=== PATIENT | male | born 1955 | race Caucasian/White ===

== ENCOUNTER → 2016-09-18 | Outpatient (CLI) | payer OTHER ==
[~2016-09-18] MED LIST: ACULAR 3ML 3 ML5 ML; ATENOLOL50 MG; LIPITOR40 MG; LISINOPRIL20 MG PO; OCUFLOX 0.3% 5 M5 ML; PRED FORTE 1 ML1 ML; TRICOR134 MG; TYLENOL PM 5001 CAP; XANAX0.25 MG; [UNRECOGNIZED DRUG - OTHER]
[2016-09-18 13:54] LABS: CHOLESTEROL 258 mg/dL (<200); HDL CHOLESTEROL 34 mg/dl (40-60)
[2016-09-18 14:00] LABS: TRIGLYCERIDES 1157 mg/dl (<150)
== END | disposition home or self-care (01) ==
LOC: LAB 13:01
PROVIDERS: Internal Medicine
DX: E78.5 Hyperlipidemia, unspecified (principal)

== ENCOUNTER → 2017-05-10 | Outpatient (CLI) | payer OTHER ==
[2017-05-10 15:48] LABS: ALBUMIN 4.2 gm/dl (3.1-4.5); ALKALINE PHOSPHATASE 64 U/L (45-117); BILIRUBIN, DIRECT 0.1 mg/dL (0.0-0.2); BUN 28 mg/dl (7-24); CHLORIDE 104 mmol/L (98-107); CHOLESTEROL 112 mg/dL (<200); CREATININE 1.35 mg/dL (0.70-1.30); HDL CHOLESTEROL 22 mg/dl (40-60); LDL CHOLESTEROL 25 mg/dL (9-159); SGOT/AST 24 IU/L (3-35); SGPT/ALT 26 U/L (12-78); SODIUM 141 mmol/L (136-145); TOTAL PROTEIN 7.9 gm/dL (6.4-8.2); TRIGLYCERIDES 325 mg/dl (<150); VLDL CHOLESTEROL 65 mg/dL (6-40)
== END | disposition home or self-care (01) ==
LOC: LAB 14:22
PROVIDERS: Internal Medicine
DX: I10 Essential (primary) hypertension (principal); R73.02 Impaired glucose tolerance (oral); E78.5 Hyperlipidemia, unspecified; E55.9 Vitamin D deficiency, unspecified

== ENCOUNTER → 2018-04-06 | Day surgery (SDC) | payer OTHER ==
[~2018-04-06] VITALS: Ht 172.7 cm; Wt 90.7 kg
[~2018-04-06] MED LIST changes: +BETIMOL5 M1 OD; +FISH OIL 1,0001 EAC3 PO; +XANAX2 M1 PO; +ZETIA10 MG PO
--- NOTE | ~2018-04-06 | O ---
[place], [place] OPERATIVE NOTE NAME: ANGELA CLARK [facility] #: [id number] UNIT #: [id number] ROOM: DOCTOR: GABRIELE RASMUSSEN MD BIRTHDATE: [birth year] DOS: 04/06/2018 PREOPERATIVE DIAGNOSIS: Cataract, left eye. POSTOPERATIVE DIAGNOSIS: Cataract, left eye. OPERATION: Extracapsular cataract extraction by phacoemulsification with posterior chamber intraocular lens implantation, left eye. ANESTHESIA: Monitored standby. INTRAOCULAR LENS: Griffin AU00T0 and 23.5 diopters, left eye. OPERATIVE FINDINGS AND PROCEDURE: 2% Xylocaine topical anesthetic gel was applied to the eye in the preop area. The patient was taken to the operating room and prepped and draped in the standard fashion for sterile intraocular surgery. A time out procedure was performed verifying correct patient, correct site and corrects lens with Sujata Rasmussen M.D. The operating microscope was swung into position and the lid speculum was inserted. Using a Otilia paracentesis blade, a paracentesis was made through clear cornea. Viscoelastic was used to fill the anterior chamber. Using a metal keratome a 2.4 mm self-sealing clear corneal cataract incision was made temporally at the limbus. Using a pre-bent 25 gauge cystotome needle, a standard continuous curvilinear capsulorrhexis was performed. The anterior capsule was removed with forceps. The lens nucleus was hydrodissected and phacoemulsified in the posterior chamber. Cortical material was removed with the irrigation aspiration hand piece and the posterior capsule was then polished with a curet under irrigation. The posterior chamber and capsular bag were filled with viscoelastic. A posterior chamber intraocular lens manufactured by: Griffin, model AU00T0 and 23.5 diopters in strength were then inserted into the posterior chamber and within the capsular bag using the lens cartridge and injector system. Viscoelastic was removed using the irrigation aspiration handpiece. The anterior chamber was filled with balanced salt solution through the paracentesis. Both the paracentesis site and cataract incisions were hydrated with BSS and verified to be water-tight and self-sealing. Cefuroxime 1 mg/0.1 mL was injected into the anterior chamber through the paracentesis site. The incision checked to be water-tight using a Weck-Francie sponge. The integrity of the cataract wound and ocular tension were checked. Lid speculum and drapes were removed. The patient was transferred from the operating room to the recovery room in satisfactory condition. [place], [place] OPERATIVE NOTE NAME: ANGELA CLARK UNIT #: [id number] ROOM: DOCTOR: GABRIELE RASMUSSEN MD BIRTHDATE: [birth year] GABRIELE RASMUSSEN MD CM:OPRECORD:OPERATIVE NOTE [id number] GABRIELE RASMUSSEN MD 04/06/18 1639 interface
[2018-04-06 14:41] VITALS: BP 126/80
[2018-04-06 14:55] VITALS: BP 134/87
[2018-04-06 15:11] VITALS: BP 131/68
== END | disposition home or self-care (01) ==
LOC: SDC 03-31 11:00
DX: H25.812 Combined forms of age-related cataract, left eye (principal); I10 Essential (primary) hypertension; F41.9 Anxiety disorder, unspecified; F32.9 Major depressive disorder, single episode, unspecified; F10.10 Alcohol abuse, uncomplicated; F17.210 Nicotine dependence, cigarettes, uncomplicated; Z79.899 Other long term (current) drug therapy; Z98.41 Cataract extraction status, right eye; Z96.1 Presence of intraocular lens

== ENCOUNTER 2021-06-12 21:09 | Observation (INO) | payer OTHER ==
[~2021-06-12] VITALS: Ht 172.7 cm; Wt 72.6 kg
[2021-06-12 21:09] VITALS: BP 134/98
[~2021-06-12 21:09] MED LIST changes: -BETIMOL5 M1 OD; +COSOPT 2%-0.5%10 ML OD; +VITAMIN D325 MCG PO; -[UNRECOGNIZED DRUG - OTHER]
[2021-06-12] MEDS ORDERED: LATANOPROST2.5 ML OD (21:29)
[2021-06-12 21:32] LABS: BASO # 0.1 10*3/uL (0.0-0.1); BASO % 0.7 % (0.0-1.0); EOS # 0.1 10*3/uL (0.0-0.4); EOS % 0.7 % (1.0-4.0); HEMATOCRIT 44.9 % (42.0-52.0); LYMPH % 24.7 % (27.0-41.0); MEAN CELL VOLUME 89.4 fl (80.0-94.0); MEAN CORPUSCULAR HGB 31.1 pg (27.0-31.0); MEAN CORPUSCULAR HGB CONC 34.7 g/dl (33.0-37.0); MEAN PLATELET VOLUME 12.2 fl (9.6-12.3); MONO % 12.7 % (3.0-9.0); PLATELET COUNT AUTOMATED 240 10*3/uL (130-400); RED BLOOD COUNT 5.02 10*6/uL (4.50-5.90); RED CELL DISTRI WIDTH 14.4 % (0-14.5); WHITE BLOOD COUNT 8.2 10*3/uL (4.8-10.8)
[2021-06-12 21:43] LABS: ACT PARTIAL THROMBO TIME 32.3 SECONDS (20.0-32.1)
[2021-06-12 21:45] LABS: ALBUMIN 4.1 gm/dl (3.1-4.5); ALKALINE PHOSPHATASE 97 U/L (45-117); BUN 18 mg/dl (7-24); CHLORIDE 105 mmol/L (98-107); CREATININE 0.95 mg/dL (0.70-1.30); POTASSIUM 3.4 mmol/L (3.5-5.1); SGOT/AST 28 IU/L (3-35); SGPT/ALT 40 U/L (12-78); SODIUM 138 mmol/L (136-145); TOTAL PROTEIN 7.1 gm/dL (6.4-8.2)
[2021-06-12 22:27] VITALS: BP 128/83
[2021-06-12 23:53] VITALS: BP 120/71
[2021-06-13 00:58] VITALS: BP 142/70
[2021-06-13 03:16] VITALS: BP 124/77
[2021-06-13 05:31] LABS: BUN 17 mg/dl (7-24); CHLORIDE 107 mmol/L (98-107); CREATININE 0.76 mg/dL (0.70-1.30); POTASSIUM 3.8 mmol/L (3.5-5.1); SODIUM 140 mmol/L (136-145)
[2021-06-13 05:35] LABS: CHOLESTEROL 145 mg/dL (<200); FREE T4 0.88 ng/dl (0.76-1.46); LDL CHOLESTEROL 81 mg/dL (9-159); TRIGLYCERIDES 182 mg/dl (<150)
[2021-06-13 05:59] VITALS: BP 136/75
[2021-06-13 06:16] LABS: BASO # 0.1 10*3/uL (0.0-0.1); BASO % 0.6 % (0.0-1.0); EOS # 0.1 10*3/uL (0.0-0.4); EOS % 0.8 % (1.0-4.0); HEMATOCRIT 41.3 % (42.0-52.0); LYMPH # 2.1 10*3/uL (1.3-4.4); LYMPH % 24.7 % (27.0-41.0); MEAN CELL VOLUME 89.6 fl (80.0-94.0); MEAN CORPUSCULAR HGB 30.4 pg (27.0-31.0); MEAN CORPUSCULAR HGB CONC 33.9 g/dl (33.0-37.0); MEAN PLATELET VOLUME 11.9 fl (9.6-12.3); MONO % 11.5 % (3.0-9.0); NEUT # 5.4 10*3/uL (2.3-7.9); NEUT % 62.1 % (47.0-73.0); PLATELET COUNT AUTOMATED 201 10*3/uL (130-400); RED BLOOD COUNT 4.61 10*6/uL (4.50-5.90); RED CELL DISTRI WIDTH 14.2 % (0-14.5); WHITE BLOOD COUNT 8.6 10*3/uL (4.8-10.8)
[2021-06-13 08:06] VITALS: BP 138/83
[2021-06-13 12:24] VITALS: BP 141/88
[2021-06-13] MEDS ORDERED: LISINOPRIL10 M1 PO (15:04)
[2021-06-13] MEDS ORDERED: ATORVASTATIN CA40 M1 PO (15:04)
[2021-06-13] MEDS ORDERED: IMDUR SA30 MG PO (15:04)
[2021-06-13] MEDS ORDERED: ASPIRIN ADULT L81 M2 PO (15:04)
[2021-06-13] MEDS ORDERED: LOPRESSOR25 MG PO (15:04)
[2021-06-13] MEDS ORDERED: NITROSTAT0.4 MG PO (15:04)
== END 2021-06-13 16:00 | disposition home or self-care (01) ==
LOC: ED 21:09 → 4E 06-13 00:24 → EDHOLD 06-13 00:24 → 4E 06-13 07:59
PROVIDERS: Emergency Medicine; Student in an Organized Health Care Education/Training Program; ADMIT Family Medicine; ATTEND Family Medicine
DX: R07.89 Other chest pain (principal); R42 Dizziness and giddiness; F41.9 Anxiety disorder, unspecified; R71.8 Other abnormality of red blood cells; Z20.822 Contact with and (suspected) exposure to COVID-19; I10 Essential (primary) hypertension; E78.5 Hyperlipidemia, unspecified; E55.9 Vitamin D deficiency, unspecified; F17.200 Nicotine dependence, unspecified, uncomplicated; Z79.899 Other long term (current) drug therapy

== ENCOUNTER → 2021-08-14 | Outpatient (CLI) | payer OTHER ==
[~2021-08-14] MED LIST changes: +ASPIRIN ADULT L81 M2 PO; +ATORVASTATIN CA40 M1 PO; +IMDUR SA30 MG PO; +LATANOPROST2.5 ML OD; +LISINOPRIL10 M1 PO; +LOPRESSOR25 MG PO; +NITROSTAT0.4 MG PO
== END | disposition home or self-care (01) ==
LOC: US 08:28
PROVIDERS: ATTEND Physician Assistant
DX: K80.80 Other cholelithiasis without obstruction (principal); I10 Essential (primary) hypertension; F17.210 Nicotine dependence, cigarettes, uncomplicated; F41.0 Panic disorder [episodic paroxysmal anxiety]; R63.4 Abnormal weight loss; N28.9 Disorder of kidney and ureter, unspecified

== ENCOUNTER 2021-09-11 16:37 | Emergency (ER) | payer OTHER | END 2021-09-11 18:00 | disposition left against medical advice (07) | LOC: ED 16:37 | DX: R10.9 Unspecified abdominal pain (principal); Z53.21 Procedure and treatment not carried out due to patient leaving prior to being seen by health care provider ==

== ENCOUNTER 2021-10-21 16:54 | Inpatient (IN) | payer OTHER ==
[~2021-10-21] VITALS: Ht 172.7 cm; Wt 66.8 kg
[2021-10-21 16:59] VITALS: BP 145/95; BP 165/95
[2021-10-21 17:27] LABS: BASO % 0.5 % (0.0-1.0); EOS % 0.1 % (1.0-4.0); HEMATOCRIT 46.6 % (42.0-52.0); LYMPH # 1.1 10*3/uL (1.3-4.4); LYMPH % 12.9 % (27.0-41.0); MEAN CELL VOLUME 88.8 fl (80.0-94.0); MEAN CORPUSCULAR HGB 30.9 pg (27.0-31.0); MEAN CORPUSCULAR HGB CONC 34.8 g/dl (33.0-37.0); MEAN PLATELET VOLUME 10.9 fl (9.6-12.3); MONO # 0.7 10*3/uL (0.1-1.0); MONO % 8.5 % (3.0-9.0); NEUT # 6.3 10*3/uL (2.3-7.9); NEUT % 77.8 % (47.0-73.0); PLATELET COUNT AUTOMATED 165 10*3/uL (130-400); RED BLOOD COUNT 5.25 10*6/uL (4.50-5.90); RED CELL DISTRI WIDTH 12.4 % (0-14.5); WHITE BLOOD COUNT 8.1 10*3/uL (4.8-10.8)
[2021-10-21 17:37] LABS: ACT PARTIAL THROMBO TIME 28.8 SECONDS (20.0-32.1); INTERNATIONAL NORM RATIO 1.1 (2.0-3.5)
[2021-10-21 17:45] LABS: ALKALINE PHOSPHATASE 101 U/L (45-117); BUN 9 mg/dl (7-24); CHLORIDE 103 mmol/L (98-107); CPK 370 U/L (39-308); CREATININE 0.72 mg/dL (0.70-1.30); POTASSIUM 3.1 mmol/L (3.5-5.1); SGOT/AST 22 IU/L (3-35); SGPT/ALT 17 U/L (12-78); SODIUM 139 mmol/L (136-145); TOTAL PROTEIN 6.6 gm/dL (6.4-8.2)
[2021-10-21 17:56] LABS: ETHYL ALCOHOL < 3.0 mg/dl (<3)
[2021-10-21 20:35] LABS: BILIRUBIN Negative (Negative); BLOOD Negative (Negative); CLARITY Clear (Clear); COLOR Yellow (Yellow); GLUCOSE Negative (Negative); KETONE 1+ (Negative); LEUKO ESTERASE Negative (Negative); NITRITE Negative (Negative); UROBILINOGEN 0.2 E.U./dl (0.0-1.0)
[2021-10-21 20:43] LABS: EPITHELIAL CELLS 0-2; URINE AMPHETAMINES < 1000 (1000ng/ml); URINE BARBITURATES < 200 (200ng/ml); URINE BENZODIAZEPINES > 200 (200ng/ml); URINE CANNABINOIDS (THC) < 50 (50ng/ml); URINE COCAINE < 300 (300ng/ml); URINE METHADONE < 300 (300ng/ml); URINE OPIATES < 300 (300ng/ml); WBC 0-2 wbc/hpf (0-5)
[2021-10-21 20:44] LABS: BACTERIA TRACE; HYALINE CAST 0-2; URINE PHENCYCLIDINE < 25 (25ng/ml)
[2021-10-21 21:45] VITALS: BP 150/86
[2021-10-21 22:06] VITALS: BP 101/60
[2021-10-22] VITALS: BP 138/74
[2021-10-22 06:01] LABS: BASO % 0.3 % (0.0-1.0); EOS % 0.2 % (1.0-4.0); HEMATOCRIT 42.6 % (42.0-52.0); LYMPH # 1.9 10*3/uL (1.3-4.4); LYMPH % 18.9 % (27.0-41.0); MEAN CELL VOLUME 90.4 fl (80.0-94.0); MEAN CORPUSCULAR HGB 31.2 pg (27.0-31.0); MEAN CORPUSCULAR HGB CONC 34.5 g/dl (33.0-37.0); MEAN PLATELET VOLUME 11.2 fl (9.6-12.3); MONO % 9.8 % (3.0-9.0); NEUT # 7.1 10*3/uL (2.3-7.9); NEUT % 70.4 % (47.0-73.0); PLATELET COUNT AUTOMATED 154 10*3/uL (130-400); RED BLOOD COUNT 4.71 10*6/uL (4.50-5.90); RED CELL DISTRI WIDTH 12.5 % (0-14.5); WHITE BLOOD COUNT 10.1 10*3/uL (4.8-10.8)
[2021-10-22 06:14] LABS: BUN 6 mg/dl (7-24); CHLORIDE 108 mmol/L (98-107); CHOLESTEROL 110 mg/dL (<200); CREATININE 0.55 mg/dL (0.70-1.30); LDL CHOLESTEROL 58 mg/dL (9-159); POTASSIUM 3.4 mmol/L (3.5-5.1); SGOT/AST 19 IU/L (3-35); SGPT/ALT 14 U/L (12-78); SODIUM 141 mmol/L (136-145); TOTAL PROTEIN 5.6 gm/dL (6.4-8.2); TRIGLYCERIDES 80 mg/dl (<150)
[2021-10-22 06:20] LABS: ALKALINE PHOSPHATASE 87 U/L (45-117); FREE T4 1.16 ng/dl (0.76-1.46); THYROID STIM HORMONE (HS) 0.775 uIU/ml (0.358-4.75)
[2021-10-22 06:22] LABS: CPK 250 U/L (39-308)
[2021-10-22 07:38] LABS: VITAMIN D, 25-HYDROXY 52.7 ng/mL (30-100)
[2021-10-22 08:00] VITALS: BP 150/79
[2021-10-22 12:00] VITALS: BP 107/75
[2021-10-22 16:00] VITALS: BP 107/53
[2021-10-22 20:00] VITALS: BP 121/84
[2021-10-23] VITALS: BP 119/88
[2021-10-23 06:13] LABS: BASO % 0.5 % (0.0-1.0); EOS % 0.5 % (1.0-4.0); LYMPH # 2.5 10*3/uL (1.3-4.4); LYMPH % 30.1 % (27.0-41.0); MEAN CELL VOLUME 90.3 fl (80.0-94.0); MEAN CORPUSCULAR HGB 30.8 pg (27.0-31.0); MEAN PLATELET VOLUME 11.6 fl (9.6-12.3); MONO # 0.8 10*3/uL (0.1-1.0); NEUT % 59.7 % (47.0-73.0); PLATELET COUNT AUTOMATED 137 10*3/uL (130-400); RED BLOOD COUNT 4.65 10*6/uL (4.50-5.90); RED CELL DISTRI WIDTH 12.8 % (0-14.5); WHITE BLOOD COUNT 8.3 10*3/uL (4.8-10.8)
[2021-10-23 06:14] LABS: BUN 11 mg/dl (7-24); CHLORIDE 109 mmol/L (98-107); CREATININE 0.65 mg/dL (0.70-1.30); POTASSIUM 3.8 mmol/L (3.5-5.1); SODIUM 143 mmol/L (136-145)
[2021-10-23 08:00] VITALS: BP 125/50; BP 127/64
[2021-10-23 12:00] VITALS: BP 130/89
[2021-10-23 16:00] VITALS: BP 145/81
[2021-10-23 20:00] VITALS: BP 144/68
[2021-10-24] VITALS: BP 131/79
[2021-10-24 06:09] LABS: BASO # 0.1 10*3/uL (0.0-0.1); BASO % 0.6 % (0.0-1.0); EOS # 0.1 10*3/uL (0.0-0.4); EOS % 0.9 % (1.0-4.0); HEMATOCRIT 39.4 % (42.0-52.0); LYMPH # 2.1 10*3/uL (1.3-4.4); LYMPH % 26.4 % (27.0-41.0); MEAN CELL VOLUME 91.2 fl (80.0-94.0); MEAN PLATELET VOLUME 11.7 fl (9.6-12.3); MONO # 0.8 10*3/uL (0.1-1.0); MONO % 10.3 % (3.0-9.0); NEUT # 4.9 10*3/uL (2.3-7.9); NEUT % 61.5 % (47.0-73.0); PLATELET COUNT AUTOMATED 125 10*3/uL (130-400); RED BLOOD COUNT 4.32 10*6/uL (4.50-5.90); RED CELL DISTRI WIDTH 12.8 % (0-14.5)
[2021-10-24 06:12] LABS: BUN 11 mg/dl (7-24); CHLORIDE 111 mmol/L (98-107); CREATININE 0.64 mg/dL (0.70-1.30); POTASSIUM 3.7 mmol/L (3.5-5.1); SODIUM 145 mmol/L (136-145)
[2021-10-24 08:00] VITALS: BP 146/82
[2021-10-24 12:00] VITALS: BP 144/83
[2021-10-24] MEDS ORDERED: XANAX2 M1 PO (12:08)
[2021-10-24] MEDS ORDERED: VITAMIN B-1100 M1 PO (12:10)
[2021-10-24] MEDS ORDERED: NATURE'S BLEND F1 MG PO (12:10)
== END 2021-10-24 13:30 | DRG 425 ==
LOC: ED 16:54 → 5E 20:01 → EDHOLD 20:01 → 5E 20:52
PROVIDERS: Emergency Medicine; Internal Medicine; Student in an Organized Health Care Education/Training Program; ADMIT Family Medicine; ATTEND Family Medicine
DX: E87.6 Hypokalemia (principal); F41.0 Panic disorder [episodic paroxysmal anxiety]; I10 Essential (primary) hypertension; F32.9 Major depressive disorder, single episode, unspecified; E78.5 Hyperlipidemia, unspecified; F41.9 Anxiety disorder, unspecified; R73.9 Hyperglycemia, unspecified; E80.6 Other disorders of bilirubin metabolism; E53.8 Deficiency of other specified B group vitamins; Z20.822 Contact with and (suspected) exposure to COVID-19; Z66 Do not resuscitate; I49.3 Ventricular premature depolarization; Z98.49 Cataract extraction status, unspecified eye; Z87.891 Personal history of nicotine dependence; Z51.5 Encounter for palliative care; I63.89 Other cerebral infarction; I69.30 Unspecified sequelae of cerebral infarction

== ENCOUNTER 2021-11-01 14:08 | Inpatient (IN) | payer OTHER ==
[~2021-11-01] VITALS: Ht 172.7 cm; Wt 56.9 kg
[~2021-11-01 14:08] MED LIST changes: +NATURE'S BLEND F1 MG PO; +VITAMIN B-1100 M1 PO
[2021-11-01 14:12] VITALS: BP 113/71
[2021-11-01 15:16] LABS: BASO % 0.5 % (0.0-1.0); EOS % 0.1 % (1.0-4.0); HEMATOCRIT 40.6 % (42.0-52.0); LYMPH # 1.4 10*3/uL (1.3-4.4); LYMPH % 16.9 % (27.0-41.0); MEAN CELL VOLUME 90.2 fl (80.0-94.0); MEAN CORPUSCULAR HGB 30.7 pg (27.0-31.0); MEAN PLATELET VOLUME 10.7 fl (9.6-12.3); MONO # 0.9 10*3/uL (0.1-1.0); MONO % 10.7 % (3.0-9.0); NEUT # 5.9 10*3/uL (2.3-7.9); NEUT % 71.4 % (47.0-73.0); PLATELET COUNT AUTOMATED 197 10*3/uL (130-400); RED CELL DISTRI WIDTH 13.3 % (0-14.5); WHITE BLOOD COUNT 8.3 10*3/uL (4.8-10.8)
[2021-11-01 15:32] LABS: ALKALINE PHOSPHATASE 89 U/L (45-117); BUN 31 mg/dl (7-24); CHLORIDE 108 mmol/L (98-107); CREATININE 1.09 mg/dL (0.70-1.30); POTASSIUM 3.4 mmol/L (3.5-5.1); SGOT/AST 14 IU/L (3-35); SGPT/ALT 26 U/L (12-78); SODIUM 143 mmol/L (136-145); TOTAL PROTEIN 5.9 gm/dL (6.4-8.2)
[2021-11-01 16:00] VITALS: BP 146/84
[2021-11-01 16:36] LABS: BILIRUBIN Negative (Negative); BLOOD Negative (Negative); CLARITY Clear (Clear); COLOR Yellow (Yellow); GLUCOSE Negative (Negative); KETONE Trace (Negative); LEUKO ESTERASE Negative (Negative); NITRITE Negative (Negative); SPECIFIC GRAVITY 1.025 (1.001-1.030)
[2021-11-01 16:39] LABS: URINE AMPHETAMINES < 1000 (1000ng/ml); URINE BARBITURATES < 200 (200ng/ml); URINE BENZODIAZEPINES > 200 (200ng/ml); URINE CANNABINOIDS (THC) < 50 (50ng/ml); URINE COCAINE < 300 (300ng/ml); URINE METHADONE < 300 (300ng/ml); URINE OPIATES < 300 (300ng/ml); URINE PHENCYCLIDINE < 25 (25ng/ml)
[2021-11-01 16:43] LABS: BACTERIA 2+; HYALINE CAST 0-2; MUCOUS 2+
[2021-11-01 16:44] LABS: EPITHELIAL CELLS 0-2; WBC 0-2 wbc/hpf (0-5)
[2021-11-01 20:00] VITALS: BP 136/79
[2021-11-01 20:10] VITALS: BP 160/80
[2021-11-01] MEDS ORDERED: XANAX0.5 MG PO (20:37)
[2021-11-01] MEDS ORDERED: COSOPT 2%-0.5%10 ML OPH (20:44)
[2021-11-01] MEDS ORDERED: XALATAN 2.5 ML2.5 ML OP (20:46)
[2021-11-02] VITALS: BP 176/86
[2021-11-02 04:00] VITALS: BP 146/84
[2021-11-02 05:19] LABS: ALKALINE PHOSPHATASE 83 U/L (45-117); CHLORIDE 110 mmol/L (98-107); CREATININE 0.56 mg/dL (0.70-1.30); POTASSIUM 3.7 mmol/L (3.5-5.1); SGOT/AST 19 IU/L (3-35); SGPT/ALT 23 U/L (12-78); SODIUM 141 mmol/L (136-145); TOTAL PROTEIN 5.8 gm/dL (6.4-8.2)
[2021-11-02 05:22] LABS: BUN 19 mg/dl (7-24)
[2021-11-02 06:15] LABS: BASO % 0.5 % (0.0-1.0); EOS % 0.3 % (1.0-4.0); HEMATOCRIT 40.8 % (42.0-52.0); LYMPH # 1.9 10*3/uL (1.3-4.4); LYMPH % 24.5 % (27.0-41.0); MEAN CELL VOLUME 88.9 fl (80.0-94.0); MEAN CORPUSCULAR HGB 30.5 pg (27.0-31.0); MEAN CORPUSCULAR HGB CONC 34.3 g/dl (33.0-37.0); MEAN PLATELET VOLUME 11.4 fl (9.6-12.3); MONO # 0.9 10*3/uL (0.1-1.0); MONO % 11.9 % (3.0-9.0); NEUT % 62.7 % (47.0-73.0); PLATELET COUNT AUTOMATED 188 10*3/uL (130-400); RED BLOOD COUNT 4.59 10*6/uL (4.50-5.90); RED CELL DISTRI WIDTH 13.3 % (0-14.5); WHITE BLOOD COUNT 7.9 10*3/uL (4.8-10.8)
[2021-11-02 06:30] LABS: ACT PARTIAL THROMBO TIME 34.4 SECONDS (20.0-32.1)
[2021-11-02 08:00] VITALS: BP 152/78
[2021-11-02 12:00] VITALS: BP 148/92
[2021-11-02 16:00] VITALS: BP 144/79
[2021-11-02 20:00] VITALS: BP 141/81
[2021-11-03] VITALS: BP 152/82
[2021-11-03 05:53] LABS: ALKALINE PHOSPHATASE 79 U/L (45-117); BUN 17 mg/dl (7-24); CHLORIDE 113 mmol/L (98-107); CREATININE 0.52 mg/dL (0.70-1.30); POTASSIUM 3.5 mmol/L (3.5-5.1); SGOT/AST 15 IU/L (3-35); SGPT/ALT 19 U/L (12-78); SODIUM 143 mmol/L (136-145); TOTAL PROTEIN 5.4 gm/dL (6.4-8.2)
[2021-11-03 07:08] LABS: BASO # 0.1 10*3/uL (0.0-0.1); BASO % 0.7 % (0.0-1.0); EOS # 0.1 10*3/uL (0.0-0.4); HEMATOCRIT 42.2 % (42.0-52.0); LYMPH # 2.7 10*3/uL (1.3-4.4); LYMPH % 36.8 % (27.0-41.0); MEAN CORPUSCULAR HGB 30.8 pg (27.0-31.0); MEAN CORPUSCULAR HGB CONC 33.4 g/dl (33.0-37.0); MEAN PLATELET VOLUME 12.2 fl (9.6-12.3); MONO # 0.7 10*3/uL (0.1-1.0); NEUT # 3.7 10*3/uL (2.3-7.9); NEUT % 51.4 % (47.0-73.0); PLATELET COUNT AUTOMATED 166 10*3/uL (130-400); RED BLOOD COUNT 4.58 10*6/uL (4.50-5.90); RED CELL DISTRI WIDTH 13.5 % (0-14.5); WHITE BLOOD COUNT 7.2 10*3/uL (4.8-10.8)
[2021-11-03 07:41] LABS: MEAN CELL VOLUME 92.1 fl (80.0-94.0)
[2021-11-03 08:00] VITALS: BP 154/90
[2021-11-03 12:00] VITALS: BP 134/76
[2021-11-03 12:15] VITALS: BP 140/59
[2021-11-03 16:00] VITALS: BP 139/71
[2021-11-03 20:00] VITALS: BP 110/73; BP 140/73
[2021-11-04] VITALS: BP 137/69
[2021-11-04 08:00] VITALS: BP 152/88
[2021-11-04 12:00] VITALS: BP 140/78
[2021-11-04 16:00] VITALS: BP 115/69
[2021-11-04 20:00] VITALS: BP 117/64
[2021-11-05] VITALS: BP 132/76
[2021-11-05 05:31] LABS: BUN 18 mg/dl (7-24); CHLORIDE 110 mmol/L (98-107); CREATININE 0.67 mg/dL (0.70-1.30); POTASSIUM 3.9 mmol/L (3.5-5.1); SODIUM 141 mmol/L (136-145)
[2021-11-05 06:26] LABS: BASO # 0.1 10*3/uL (0.0-0.1); BASO % 0.7 % (0.0-1.0); EOS # 0.1 10*3/uL (0.0-0.4); EOS % 1.5 % (1.0-4.0); HEMATOCRIT 40.4 % (42.0-52.0); LYMPH # 2.3 10*3/uL (1.3-4.4); LYMPH % 32.8 % (27.0-41.0); MEAN CELL VOLUME 91.8 fl (80.0-94.0); MEAN CORPUSCULAR HGB 30.7 pg (27.0-31.0); MEAN CORPUSCULAR HGB CONC 33.4 g/dl (33.0-37.0); MEAN PLATELET VOLUME 11.8 fl (9.6-12.3); MONO # 0.5 10*3/uL (0.1-1.0); MONO % 7.9 % (3.0-9.0); NEUT # 3.9 10*3/uL (2.3-7.9); NEUT % 56.7 % (47.0-73.0); PLATELET COUNT AUTOMATED 163 10*3/uL (130-400); RED CELL DISTRI WIDTH 13.6 % (0-14.5); WHITE BLOOD COUNT 6.9 10*3/uL (4.8-10.8)
[2021-11-05 08:00] VITALS: BP 151/87
[2021-11-05] MEDS ORDERED: LATU20TA PO (10:51)
[2021-11-05] MEDS ORDERED: XANAX0.5 MG PO (10:52)
== END 2021-11-05 12:54 | DRG 776 ==
LOC: ED 14:08 → EDHOLD 18:35 → 4E 18:35
PROVIDERS: Family Medicine; Internal Medicine; Student in an Organized Health Care Education/Training Program; ADMIT Internal Medicine; ATTEND Internal Medicine
DX: F13.239 Sedative, hypnotic or anxiolytic dependence with withdrawal, unspecified (principal); N17.0 Acute kidney failure with tubular necrosis; G93.41 Metabolic encephalopathy; E87.6 Hypokalemia; F41.0 Panic disorder [episodic paroxysmal anxiety]; R44.1 Visual hallucinations; Z20.822 Contact with and (suspected) exposure to COVID-19; F41.9 Anxiety disorder, unspecified; F32.9 Major depressive disorder, single episode, unspecified; E78.5 Hyperlipidemia, unspecified; I10 Essential (primary) hypertension; E87.8 Other disorders of electrolyte and fluid balance, not elsewhere classified; E80.6 Other disorders of bilirubin metabolism; E78.2 Mixed hyperlipidemia; Z66 Do not resuscitate; Z51.5 Encounter for palliative care; Z98.49 Cataract extraction status, unspecified eye

== ENCOUNTER → 2022-03-26 | Outpatient (CLI) | payer MEDICARE ==
[~2022-03-26] MED LIST changes: +COSOPT 2%-0.5%10 ML OPH; +LATU20TA PO; +XALATAN 2.5 ML2.5 ML OP; +XANAX0.5 MG PO
== END | disposition home or self-care (01) ==
LOC: CARD 09:00
PROVIDERS: ATTEND Physician Assistant
DX: I49.3 Ventricular premature depolarization (principal)